=== PATIENT | female | born 1980 | race Two or more races ===

== ENCOUNTER 2021-05-09 08:19 | Inpatient (IN) | payer BC ==
[~2021-05-09 08:19] MED LIST: Sodium Chloride 0.9% 10 ML Syringe FLUSH PRN; Sodium Chloride 0.9% 2.5 ML Syringe FLUSH PRN; Sodium Chloride 0.9% 20 ML SDV IV PRN; ceFAZolin 1 GM Vial IV SCH; ceFAZolin 3 GM in Dextrose 5% in Water 100 ML IV ONE
[2021-05-09] MEDS ORDERED: Dexamethasone 4 MG/ML 5 ML MDV ONE (08:24)
[2021-05-09] MEDS ORDERED: Midazolam 1 MG/ML 2 ML SDV ONE (08:24)
[2021-05-09] MEDS ORDERED: Ketamine HCL/NACL, ISO-OSM 50 MG/5 ML Syringe ONE ×2 (08:24→10:28)
[2021-05-09] MEDS ORDERED: Dexmedetomidine 200 MCG/2 ML SDV ONE (08:24)
[2021-05-09] MEDS ORDERED: Lidocaine 2% 5 ML SDV ONE ×3 (08:24→10:28)
[2021-05-09] MEDS ORDERED: Propofol 200 MG/20 ML SDV ONE ×3 (08:24→12:14)
[2021-05-09] MEDS ORDERED: Water For Injection, Sterile 20 ML ONE ×2 (08:27→08:35)
[2021-05-09] MEDS ORDERED: Bupivacaine 0.25% 10 ML SDV ONE (08:33)
[2021-05-09] MEDS ORDERED: Rocuronium Bromide 50 MG/5 ML Syringe ONE (08:41)
[2021-05-09] MEDS: Lactated Ringers 1,000 ML IV SCH ×2 (08:59→17:26)
[2021-05-09] MEDS ORDERED: Methylene Blue 50 MG/10 ML Ampule ONE (09:07)
[2021-05-09] MEDS ORDERED: Fluorescein 5 ML Vial ONE (09:16)
[2021-05-09] MEDS ORDERED: Naloxone 0.4 MG/ML SDV IVPUSH PRN (10:15)
[2021-05-09] MEDS ORDERED: Ondansetron 4 MG/2 ML SDV IVPUSH PRN ×2 (10:15→12:50)
[2021-05-09] MEDS ORDERED: Albuterol 0.083% 2.5 MG/3 ML Neb Soln NEB PRN (10:15)
[2021-05-09] MEDS ORDERED: Morphine 2 MG/ML SYRINGE IVPUSH PRN (10:15)
[2021-05-09] MEDS ORDERED: Metoclopramide 10 MG/2 ML SDV IVPUSH PRN (10:15)
[2021-05-09] MEDS ORDERED: ceFAZolin 1 GM Vial ONE (10:21)
[2021-05-09] MEDS ORDERED: Ondansetron 4 MG/2 ML SDV ONE (10:37)
[2021-05-09] MEDS ORDERED: Ketorolac 30 MG/ML SDV ONE (10:37)
[2021-05-09] MEDS ORDERED: Furosemide 40 MG/4 ML VIAL ONE (10:37)
[2021-05-09] MEDS ORDERED: Sugammadex Sodium 200 MG/2 ML VIAL ONE (10:37)
[2021-05-09] MEDS ORDERED: Ketorolac 30 MG/ML SDV IVPUSH PRN (12:50)
[2021-05-09] MEDS ORDERED: Acetaminophen/oxyCODONE 325-5 MG Tab PO PRN (12:50)
[2021-05-09] MEDS ORDERED: Morphine 4 MG/ML VIAL IVPUSH PRN (12:50)
[2021-05-09] MEDS ORDERED: Promethazine 25 MG/ML SDV IM PRN (12:50)
[2021-05-09] MEDS: HYDROmorphone 1 MG/ML Syringe IVPUSH PRN ×2 (12:51→13:02)
[2021-05-09] MEDS: fentaNYL 100 MCG/2 ML SDV IVPUSH PRN ×4 (13:22→13:48)
[2021-05-09] MEDS: Acetaminophen/oxyCODONE 325-5 MG Tab PO PRN ×2 (15:35→21:07)
[2021-05-09] MEDS ORDERED: Cyclobenzaprine 10 MG Tab PO PRN (19:24)
[2021-05-09] MEDS: Lisinopril 10 MG Tab PO SCH (20:11)
[2021-05-09] MEDS ORDERED: Amitriptyline 25 MG Tab PO SCH (21:00)
[2021-05-10 07:12] LABS: BLOOD UREA NITROGEN,BUN 8 mg/dL (7.0-18.0); CARBON DIOXIDE,CO2 24.5 mmol/L (21.0-32.0); CHLORIDE,CL 105 mmol/L (98-107); GLUCOSE RANDOM 108 mg/dL (74-106); POTASSIUM,K 4.5 mmol/L (3.5-5.1); SODIUM,NA 139 mmol/L (136-145)
[2021-05-10] MEDS: Acetaminophen/oxyCODONE 325-5 MG Tab PO PRN (08:57)
[2021-05-10] MEDS: Lisinopril 10 MG Tab PO SCH (08:59)
== END 2021-05-10 13:36 | disposition home or self-care (01) | DRG 519 ==
LOC: MW.MS 08:28 → EDBD 09:45 → MW.MS 11:56
PROVIDERS: ADMIT Obstetrics & Gynecology; ATTEND Obstetrics & Gynecology
PROC: 0UT90ZZ Resection of Uterus, Open Approach (ICD-10-PCS; principal; 2021-05-09)
PROC: 0UB70ZZ Excision of Bilateral Fallopian Tubes, Open Approach (ICD-10-PCS; 2021-05-09)
PROC: 0UN90ZZ Release Uterus, Open Approach (ICD-10-PCS; 2021-05-09)
PROC: 0TJB8ZZ Inspection of Bladder, Via Natural or Artificial Opening Endoscopic (ICD-10-PCS; 2021-05-09)
DX: D25.9 Leiomyoma of uterus, unspecified (principal); I10 Essential (primary) hypertension; N92.1 Excessive and frequent menstruation with irregular cycle
CPT/HCPCS: 00840; 36415; 80053; 81025; 85025; 86850; 86900; 86901; A9270-GY; J0131; J0690; J1100; J1170; J1885; J1940; J2250; J2270; J2405; J2704; J3010; J3490; J7030; J7120

== ENCOUNTER 2022-12-04 10:55 | Day surgery (SDC) | payer BC ==
[~2022-12-04 10:55] MED LIST changes: +Lactated Ringers 1,000 ML IV SCH; -ceFAZolin 1 GM Vial IV SCH; -ceFAZolin 3 GM in Dextrose 5% in Water 100 ML IV ONE
[2022-12-04] MEDS ORDERED: propofoL 50 ML ONE (11:59)
[2022-12-04] MEDS ORDERED: Dexmedetomidine 200 MCG/2 ML SDV ONE (12:27)
== END 2022-12-04 13:28 | disposition home or self-care (01) ==
LOC: MW.SDS 10:55
PROVIDERS: ATTEND Surgery
DX: Z03.89 Encounter for observation for other suspected diseases and conditions ruled out (principal); L50.0 Allergic urticaria; T78.40XA Allergy, unspecified, initial encounter; I10 Essential (primary) hypertension; E06.3 Autoimmune thyroiditis; G43.909 Migraine, unspecified, not intractable, without status migrainosus; E66.01 Morbid (severe) obesity due to excess calories; Z68.42 Body mass index [BMI] 45.0-49.9, adult; Z79.890 Hormone replacement therapy; Z79.899 Other long term (current) drug therapy; Z91.09 Other allergy status, other than to drugs and biological substances
CPT/HCPCS: 43239; J2704; J7120; 00731; J3490